=== PATIENT | female | born 1990 | race Caucasian/White ===

== ENCOUNTER 2016-08-16 19:24 | Emergency (ER) | payer SELFPAY ==
[~2016-08-16] VITALS: Ht 167.6 cm; Wt 98.0 kg
[2016-08-16 19:34] VITALS: Ht 167.6 cm; Wt 98.0 kg
== END 2016-08-16 20:09 | disposition left against medical advice (07) ==
LOC: FTE 19:24
DX: Z53.21 Procedure and treatment not carried out due to patient leaving prior to being seen by health care provider (principal)

== ENCOUNTER 2017-10-09 12:43 | Emergency (ER) | END 2017-10-09 15:48 | disposition home or self-care (01) ==